=== PATIENT | female | born 1995 | race Hispanic/Latino ===

== ENCOUNTER 2018-11-03 11:03 | Emergency (ER) | payer BC, OTHER ==
--- NOTE | 2018-11-03 11:54 | RAD ---
RIGHT ANKLE 3 VIEWS: HISTORY: Injury, right ankle pain. FINDINGS/IMPRESSION: The ankle mortise is maintained. No acute fracture or dislocation is identified. POS: [facility]
[2018-11-03] MEDS ORDERED: HYDROcodone/Acetaminophen 10/325 mg Tablet ONE (12:52)
--- NOTE | 2018-11-03 12:59 | RAD ---
EXAM: RIGHT FOOT THREE VIEWS: 11/03/18 HISTORY: Injury from trauma. FINDINGS/IMPRESSION: No fracture, dislocation, or other significant acute osseous process. POS: OFF
== END 2018-11-03 13:09 | disposition home or self-care (01) ==
LOC: ERS 11:03
DX: S93.601A Unspecified sprain of right foot, initial encounter (principal); J45.909 Unspecified asthma, uncomplicated; W01.0XXA Fall on same level from slipping, tripping and stumbling without subsequent striking against object, initial encounter